=== PATIENT | male | born 1965 | race Caucasian/White ===

== ENCOUNTER 2016-07-17 14:35 | Day surgery (SDC) | payer OTHER ==
[~2016-07-17] VITALS: Ht 157.5 cm; Wt 53.0 kg
[2016-07-17 15:11] VITALS: Ht 157.5 cm; Wt 53.0 kg
[2016-07-17] MEDS ORDERED: LISI20TA11 PO (15:19)
[2016-07-17] MEDS ORDERED: FENTAnyl 50 MCG/ML VIAL ONE ×2 (16:08→16:10)
[2016-07-17] MEDS ORDERED: MIDAZOLAM 1 MG/ML 2 ML INJ ONE ×2 (16:09→16:10)
[2016-07-17 16:36] VITALS: BP 146/95; PULSE 85; RESP 18
[2016-07-17 16:46] VITALS: BP 156/97; PULSE 79; RESP 16
--- NOTE | 2016-07-17 21:10 | GILP ---
DATE OF PROCEDURE: NAME OF PROCEDURE: Colonoscopy. SURGEON: Baylee Proctor MD PREOPERATIVE DIAGNOSIS: Screening colonoscopy. POSTOPERATIVE DIAGNOSES: 1. Colonoscopy all the way to the cecum. 2. Internal and external hemorrhoids. 3. No colon neoplasm was identified. INDICATION FOR THE PROCEDURE: Mr. Tyree Cantu is a 51-year-old male patient who was s cheduled for screening colonoscopy. The procedure and possible complications were well explained to the patient. The patient understood and consented to the procedure. DESCRIPTION OF PROCEDURE: Under the influence of fentanyl and Versed, the colonoscope was carefully introduced in the rectum and, under direct vision, it was advanced all the way to the cecum. FINDINGS: The patient had internal and external hemorrhoids. No colon neoplasm was identified. He tolerated the procedure very well and there was no complication from the procedure. At the end o f the procedure, he was awake with stable vital signs and he was discharged home to the care of his family. IMPRESSION: 1. Colonoscopy all the way to the cecum. 2. Internal and external hemorrhoids. 3. No colon neoplasm was identified. PLAN: Next screening colonoscopy in 10 years. Dictated By: BAYLEE DEAL/ANNE-MRAIE Conf#: [id number] DID#: [id number] CC: BAYLEE PROCTOR MD;*EndCC*
== END 2016-07-17 16:32 | disposition home or self-care (01) ==
LOC: GIL 14:35
PROVIDERS: ATTEND Internal Medicine Gastroenterology
DX: Z12.11 Encounter for screening for malignant neoplasm of colon (principal); K64.4 Residual hemorrhoidal skin tags; K64.8 Other hemorrhoids; I10 Essential (primary) hypertension
CPT/HCPCS: 45378; J2250; J3010